=== PATIENT | female | born 1975 | race Caucasian/White ===

== ENCOUNTER 2018-08-12 16:18 | Emergency (ER) | payer OTHER ==
[~2018-08-12] VITALS: Ht 165.1 cm; Wt 56.7 kg
[2018-08-12] MEDS ORDERED: Percocet 5-3251 EACH PO (17:57)
[2018-08-12] MEDS ORDERED: IBUP400 PO (17:57)
== END 2018-08-12 18:43 | disposition home or self-care (01) ==
LOC: ER 16:18
DX: T23.171A Burn of first degree of right wrist, initial encounter (principal); T22.10XA Burn of first degree of shoulder and upper limb, except wrist and hand, unspecified site, initial encounter; Z23 Encounter for immunization; X19.XXXA Contact with other heat and hot substances, initial encounter
CPT/HCPCS: 16000; 90471; 90714; 96372; 99283-25; J1170

== ENCOUNTER 2018-08-13 09:25 | Emergency (ER) | payer OTHER ==
[~2018-08-13] VITALS: Ht 165.1 cm; Wt 56.7 kg
[~2018-08-13 09:25] MED LIST: IBUP400 PO; Percocet 5-3251 EACH PO
== END 2018-08-13 10:17 | disposition home or self-care (01) ==
LOC: ER 09:25
DX: T23.15 Burn of first degree of palm (principal); T23.122 Burn of first degree of single left finger (nail) except thumb; T31.0 Burns involving less than 10% of body surface
CPT/HCPCS: 99282

== ENCOUNTER → 2019-02-27 | Outpatient (CLI) | payer OTHER | END | disposition home or self-care (01) | LOC: LAB SHORT 16:50 → LAB EV 16:50 → LAB SHORT 02-28 09:59 | DX: N39.0 Urinary tract infection, site not specified (principal) | CPT/HCPCS: 87077; 87086; 87186 ==

== ENCOUNTER → 2020-02-01 | Outpatient (CLI) | payer OTHER ==
[2020-02-02 14:08] LABS: HPV 16 Negative (Negative); HPV 18 Negative (Negative); HPV OTHER HR TYPES Negative (Negative)
== END | disposition home or self-care (01) ==
LOC: LAB SHORT 15:30 → LAB 15:30
PROVIDERS: Obstetrics & Gynecology
DX: Z01.419 Encounter for gynecological examination (general) (routine) without abnormal findings (principal)
CPT/HCPCS: 87624; G0123